=== PATIENT | male | born 1950 ===

== ENCOUNTER 2018-10-29 10:53 | Emergency (ER) | payer MEDICARE, BC ==
[2018-10-29] MEDS ORDERED: Ondansetron 4 MG/2 ML SDV IVPUSH ONE (11:43)
[2018-10-29] MEDS ORDERED: HYDROmorphone 1 MG/ML Syringe IVPUSH ONE (11:43)
[2018-10-29] MEDS ORDERED: Sodium Chloride 0.9% 10 ML Syringe FLUSH PRN ×3 (11:43→13:36)
--- NOTE | 2018-10-29 11:43 | EDM.PDOC ---
ED HPI GENERAL MEDICAL PROBLEM - General Chief Complaint: Back Pain or Injury Stated Complaint: BACK PAIN Time Seen by Provider: 10/29/18 11:20 Source of Information: Reports: Patient, Old Records History Limitations: Reports: No Limitations - History of Present Illness INITIAL COMMENTS - FREE TEXT/NARRATIVE: 68-year-old male presents for evaluation and treatment of back pain to the left upper side of his back. Patient reports he's been experiencing in this pain for several years. He has been seeing a chiropractor and has been told that his ribs are out of place. He had an adjustment about a week and half ago and states he felt better to help. He states since midnight has been a constant dull achy pain. Also reports ice to the area which seemed to help. Currently rates pain as a 7 out of 10. Was at an 8-9 out of 10. He did take a pain pill around 3 AM this morning. He also took some baby aspirin around 5 AM. States this is similar to pain he's had in the past, however, does seem more severe and is more constant. He states that he did start a lawnmower yesterday, this may have exacerbated the pain. He seen by the chiropractor today and was sent over to us due to concerns at this may be his gallbladder. Patient's blood pressure is elevated on upon arrival. He states that 3 weeks ago he stopped his blood pressure medications as he was on vacation he has not started them since. He is denying any headaches, vision changes, numbness or tingling in extremities, shortness of breath, nausea or vomiting. He reports that he has some indigestion epigastric and substernal area. Review patient's records show he has stress test in December 2017. This was read as normal. patient reports he drinks alcohol "a little bit ". He did not have any yesterday. Has a history of a bleeding ulcer. This was cauterized several years ago in [place]. He is on Prilosec and take this daily. Primary care provider is Tita Pineda in [place]. Treatments [employer] TECHNICIAN: Reports: Aspirin Left Upper Back Pain Score (Numeric/FACES): 8 - Related Data Allergies Allergy/AdvReac Type Severity Reaction Status Date / Time Penicillins Allergy Swollen Verified 10/29/18 11:01 Tongue Home Meds: Home Meds Calcium Carbonate [Tums] 2 tab PO ASDIRECTED PRN 01/16/14 [History] Omeprazole Magnesium [Prilosec Otc] 20 mg PO DAILY #30 01/17/14 [Rx] Lisinopril 20 mg PO DAILY 10/29/18 [History] amLODIPine [Norvasc] 10 mg PO DAILY 10/29/18 [History] hydroCHLOROthiazide [Hydrochlorothiazide] 25 mg PO DAILY 10/29/18 [History] Past Medical History Cardiovascular History: Reports: Hypertension Gastrointestinal History: Reports: GERD Musculoskeletal History: Reports: Back Pain, Chronic Social & Family History - Tobacco Use Smoking Status *Q: Never Smoker - Caffeine Use Caffeine Use: Reports: Coffee - Recreational Drug Use Recreational Drug Use: Yes ED ROS GENERAL - Review of Systems Review Of Systems: See Below Constitutional: Denies: Fever, Chills HEENT: Denies: Ear Pain, Throat Pain Respiratory: Denies: Shortness of Breath, Cough Cardiovascular: Reports: Chest Pain (Describes as indigestion) GI/Abdominal: Denies: Abdominal Pain, Nausea, Vomiting Musculoskeletal: Reports: Back Pain (Upper thoracic) Neurological: Denies: Headache ED EXAM, UPPER BACK/NECK PAIN - Physical Exam Exam: See Below Exam Limited By: No Limitations General Appearance: Alert, WD/WN, No Apparent Distress, Obese Eye Exam: Bilateral Eye: EOMI, Normal Inspection Ears Exam: Normal External Exam, Normal Canal, Hearing Grossly Normal, Normal TMs Nose Exam: Normal Inspection Throat/Mouth Exam: Normal Inspection, Normal Lips, Normal Oropharynx, Normal Voice, No Airway Compromise Neck Exam: Non-Tender Cardiovascular/Respiratory: Regular Rate, Rhythm, No M/R/G GI/Abdominal: Normal Bowel Sounds, Soft, Non-Tender, Hepatomegaly Neurologic: Alert, Normal Mood/Affect Psychiatric: Normal Affect, Normal Mood Skin Exam: Normal Color, Warm/Dry EKG INTERPRETATION EKG Date: 10/29/18 Rhythm: NSR EKG Interpretation Comments: ekg done at 11:13 shows a normal sinus rhythm of 67 bpm. PA-C. Rate increases from the 60s to the 110s after the PA-C. Q waves in 2, 3 and aVF. These are present on old EKG. Posterior ekg done at 1238 shows a normal sinus rhythm of 69 bpm. No acute changes. Repeat normal EKG done at 1311 shows a normal sinus rhythm of 70 bpm. Q waves I , II and aVF. He now has T-wave inversion in V5 and V6 not present on earlier ekg. ekgs reviewed by myself and Dr. Walden Course - Vital Signs Last Recorded V/S: Last Vital Signs Temp 98.7 F 10/29/18 10:58 Pulse 69 10/29/18 12:43 Resp 18 10/29/18 10:58 BP 171/103 H 10/29/18 12:43 Pulse Ox 95 10/29/18 13:23 - Orders/Labs/Meds Orders: Active Orders 24 hr Category Date Time Status Cardiac Monitoring [RC] . DIRECTED Care 10/29/18 11:44 Active EKG 12 Lead [EKG Documentation Completion] [RC] STAT Care 10/29/18 12:33 Active EKG 12 Lead [EKG Documentation Completion] [RC] STAT Care 10/29/18 12:43 Active EKG Documentation Completion [RC] ASDIRECTED Care 10/29/18 11:10 Active Peripheral IV Care [RC] . DIRECTED Care 10/29/18 11:43 Active Ang Abdomen Aorta w Bi Runoff [CT] Stat Exams 10/29/18 12:44 Ordered Heparin Sodium/D5W [Heparin 25,000 Units in D5W 500 ML] Med 10/29/18 12:30 Active 25,000 units in 500 ml IV TITRATE Nitroglycerin/D5W [Nitroglycerin 25 MG/D5W 250 ML] Med 10/29/18 12:45 Active 25 mg in 250 ml IV TITRATE Sodium Chloride 0.9% [Normal Saline] 100 ml Med 10/29/18 13:00 Active IV ASDIRECTED Sodium Chloride 0.9% [Saline Flush] Med 10/29/18 11:43 Active 10 ml FLUSH ASDIRECTED PRN Sodium Chloride 0.9% [Saline Flush] Med 10/29/18 12:53 Active 10 ml FLUSH ONETIME PRN Sodium Chloride 0.9% [Saline Flush] Med 10/29/18 13:36 Active 10 ml FLUSH ONETIME PRN Peripheral IV Insertion Adult [OM.PC] Routine Oth 10/29/18 11:43 Ordered EKG 12 Lead [EK] Stat Ther 10/29/18 11:10 Ordered Medication Orders Heparin Sodium/Dextrose (Heparin 25,000 Units In D5w 500 Ml) 25,000 units in 500 mls @ 20 mls/hr IV TITRATE MAC; Protocol Last Admin: 10/29/18 12:32 Dose: 1,000 units/hr, 20 mls/hr Nitroglycerin/Dextrose (Nitroglycerin 25 Mg/D5w 250 Ml) 25 mg in 250 mls @ 3 mls/hr IV TITRATE MAC; Protocol Last Admin: 10/29/18 13:33 Dose: 10 mcg/min, 6 mls/hr Titration: 10/29/18 13:33 Dose: 5 mcg/min, 3 mls/hr Admin: 10/29/18 12:57 Dose: 5 mcg/min, 3 mls/hr Sodium Chloride (Normal Saline) 100 mls @ 75 mls/hr IV ASDIRECTED MAC Last Admin: 10/29/18 13:38 Dose: 75 mls/hr Sodium Chloride (Saline Flush) 10 ml FLUSH ASDIRECTED PRN PRN Reason: Keep Vein Open Last Admin: 10/29/18 11:50 Dose: 10 ml Sodium Chloride (Saline Flush) 10 ml FLUSH ONETIME PRN PRN Reason: IV FLUSH Sodium Chloride (Saline Flush) 10 ml FLUSH ONETIME PRN PRN Reason: IV FLUSH Labs: Laboratory Tests 10/29/18 10/29/18 10/29/18 Range/Units 11:25 11:25 11:25 WBC 10.29 H (4.23-9.07) K/mm3 RBC 6.09 H (4.63-6.08) M/mm3 Hgb 17.5 (13.7-17.5) gm/L Hct 51.9 H (40.1-51.0) % MCV 85.2 (79.0-92.2) fl MCH 28.7 (25.7-32.2) pg MCHC 33.7 (32.2-35.5) g/dl RDW Std Deviation 49.2 H (35.1-43.9) fL Plt Count 451 H (163-337) K/mm3 MPV 9.4 (9.4-12.3) fl Neutrophils % (Manual) 82 H (40-60) % Band Neutrophils % 0 (0-10) % Lymphocytes % (Manual) 14 L (20-40) % Atypical Lymphs % 0 % Immat Monocytes % (Man) 0 Monocytes % (Manual) 1 L (2-10) % Eosinophils % (Manual) 1 (0.8-7.0) % Basophils % (Manual) 2 H (0.2-1.2) Metamyelocytes % 0 Myelocytes % 0 Promyelocytes % 0 Blast Cells % 0 Plasma Cell % (Manual) 0 Nucleated RBCs 0.0 % Platelet Estimate Adequate RBC Morph Comment Normal PT 10.1 (9.5-12.1) SECONDS INR 0.93 APTT 26 (24-31) SECONDS Sodium 136 (136-145) mEq/L Potassium 4.0 (3.5-5.1) mEq/L Chloride 98 (98-107) mEq/L Carbon Dioxide 25 (21-32) mEq/L Anion Gap 17.0 H (5-15) BUN 14 (7-18) mg/dL Creatinine 0.8 (0.7-1.3) mg/dL Est Cr Clr Drug Dosing 94.31 mL/min Estimated GFR (MDRD) > 60 (>60) mL/min BUN/Creatinine Ratio 17.5 (14-18) Glucose 117 H (80-115) mg/dL Calcium 8.5 (8.5-10.1) mg/dL Total Bilirubin 0.5 (0.2-1.0) mg/dL AST 84 H (15-37) U/L ALT 49 (16-63) U/L Alkaline Phosphatase 41 L (46-116) U/L Troponin I 5.984 H* (0.00-0.056) ng/mL Total Protein 8.1 (6.4-8.2) g/dl Albumin 3.8 (3.4-5.0) g/dl Globulin 4.3 gm/dL Albumin/Globulin Ratio 0.9 L (1-2) Lipase 86 (73-393) U/L Meds: Medications Generic Name Dose Route Start Last Admin Trade Name Freq PRN Reason Stop Dose Admin Heparin Sodium/Dextrose 25,000 units in 500 mls @ 20 mls/hr 10/29/18 12:30 12:32 Heparin 25,000 Units In D5w 500 Ml IV 1,000 units/hr TITRATE MAC 20 mls/hr Administration Protocol 1,000 UNITS/HR Nitroglycerin/Dextrose 25 mg in 250 mls @ 3 mls/hr 10/29/18 12:45 10/29/18 13 :58 Nitroglycerin 25 Mg/D5w 250 Ml IV 15 mcg/min TITRATE MAC 9 mls/hr Administration Protocol 5 MCG/MIN Sodium Chloride 100 mls @ 75 mls/hr 10/29/18 13:00 10/29/18 13:38 Normal Saline IV 75 mls/hr ASDIRECTED MAC Administration Sodium Chloride 10 ml 10/29/18 11:43 10/29/18 11:50 Saline Flush FLUSH 10 ml ASDIRECTED PRN Administration Keep Vein Open Sodium Chloride 10 ml 10/29/18 12:53 Saline Flush FLUSH ONETIME PRN IV FLUSH Sodium Chloride 10 ml 10/29/18 13:36 Saline Flush FLUSH ONETIME PRN IV FLUSH Discontinued Medications Generic Name Dose Route Start Last Admin Trade Name Freq PRN Reason Stop Dose Admin Aspirin 324 mg 10/29/18 11:44 10/29/18 11:48 Aspirin PO 10/29/18 11:45 324 mg ONETIME ONE Administration Heparin Sodium (Porcine) 4,000 units 10/29/18 12:19 10/29/18 12:30 Heparin Sodium IVPUSH 10/29/18 12:20 4,000 units ONETIME ONE Administration Hydromorphone HCl 1 mg 10/29/18 11:43 10/29/18 11:49 Dilaudid IVPUSH 10/29/18 11:44 1 mg ONETIME ONE Administration Hydromorphone HCl 0.5 mg 10/29/18 12:32 10/29/18 12:39 Dilaudid IVPUSH 10/29/18 12:33 0.5 mg ONETIME ONE Administration Iopamidol 100 ml 10/29/18 12:53 10/29/18 13:39 Isovue-370 (76%) IV 10/29/18 12:54 100 ml ONETIME ONE Administration Metoprolol Tartrate 5 mg 10/29/18 12:10 10/29/18 12:16 Lopressor IVPUSH 10/29/18 12:11 5 mg ONETIME ONE Administration Metoprolol Tartrate 5 mg 10/29/18 12:22 10/29/18 12:31 Lopressor IVPUSH 10/29/18 12:23 5 mg ONETIME ONE Administration Metoprolol Tartrate 5 mg 10/29/18 12:22 10/29/18 12:43 Lopressor IVPUSH 10/29/18 12:23 5 mg ONETIME ONE Administration Ondansetron HCl 4 mg 10/29/18 11:43 10/29/18 11:49 Zofran IVPUSH 10/29/18 11:44 4 mg ONETIME ONE Administration Simvastatin 80 mg 10/29/18 12:54 10/29/18 13:30 Zocor PO 10/29/18 12:55 80 mg ONETIME ONE Administration - Radiology Interpretation Free Text/Narrative:: Chest: Portable view of the chest was obtained. Comparison: Prior chest x-ray of 12/14/17. Heart is slightly enlarged. Upper mediastinum is normal. Lungs are clear but mildly hyperinflated. Bony structures are grossly intact. Impression: 1. Heart mildly enlarged. 2. Questionable emphysematous change. 3. Nothing acute is seen. CT abdomen and pelvis with lower extremities Technique: Multiple axial sections were obtained through the from above the aortic arch inferiorly through the abdomen and pelvis and pelvis and lower extremities. Intravenous contrast was utilized as a arterial angiogram with runoff. Comparison: No prior abdominal imaging or vascular imaging. Findings: Thoracic aorta shows no aneurysm or dissection. Visualized pulmonary arteries show no filling defects to indicate pulmonary embolism. Visualized lungs are clear. Small hiatal hernia is noted. Abdominal aorta shows no focal stenosis or aneurysm. Both renal arteries appeared to be patent. Celiac axis is patent. Superior mesenteric artery is patent. Inferior mesenteric artery is patent. Common iliac arteries as well as external and internal iliac arteries are patent. Common femoral arteries are patent on both sides as well as profunda arteries. Both superficial femoral arteries are patent. Popliteal arteries are both patent. Small fluid collections are seen posterior to both knees compatible with small popliteal cysts. Trifurcation vessels are seen on both sides with 2 opacified vessels into the ankle. Other findings: Liver contains no focal abnormality. Gallbladder contains no calcified gallstones. Normal spleen is not seen with soft tissue nodules being seen within the left upper abdomen compatible with residual splenic tissue. Adrenal glands show no nodule. Pancreas is within normal limits. Kidneys show symmetric contrast enhancement. Both kidneys shows several small cysts. No retroperitoneal adenopathy or mesenteric abnormalities are seen. No pelvic mass or adenopathy is seen. No free fluid or inflammatory change is seen within the abdomen or pelvis. Bone window setting show scoliosis and scattered degenerative change within the spine. Impression: 1. Normal aortogram with normal three-vessel runoff. No aneurysm or occlusion is seen. No dissection is seen. 2. Visualized thoracic aorta is unremarkable. No findings of pulmonary embolism. 3. Other incidental findings. CT chest Technique: Multiple axial sections through the chest were obtained. Intravenous contrast was utilized. Findings: Normal thoracic aorta is seen with no aneurysm or dissection. Pulmonary arteries show no filling defects to indicate pulmonary embolism. Mediastinum and hilar regions show no adenopathy or mass. No pericardial fluid is seen. Small hiatal hernia is noted. Lungs are clear with no acute parenchymal change. Bone window settings show mild degenerative change within the spine. Impression: 1. Aorta shows no aneurysm or dissection. No pulmonary embolism is seen. 2. Nothing acute is seen on CT study chest. - Re-Assessments/Exams Free Text/Narrative Re-Assessment/Exam: 10/29/18 13:[address] Moctezuma, hospitalist at [facility] in [place]. Recommended a CTA to evaluate for aortic dissection, repeat EKG and starting a nitro drip. Also recommended 80 mg of statin. Agrees to accept the patient would like an update with these results when they're done. Patient sent for CTA at this time. 10/29/18 13:43 Patient is pain-free at this time. Nitrogen has been started he's been on this for approximately 10-15 minutes. Blood pressure still elevated elevated. blood pressure 170/97. nitro increased to 10 g. Heart rate is 74. Denies any pain at this time. Repeat EKG shows T-wave inversion in V5 and V6. 10/29/18 13:57 b/p 179/119 increase nitro drip to 15mcg. 10/29/18 14:05 BP at this time 170/120. Updated Dr. Munson. Recommended continuing to increase nitroglycerin every 20 minutes by 5 with a goal of systolic 150s. He will be rejected a, states he developed worsening hypertension or chest pain en route. Departure - Departure Time of Disposition: 14:05 Disposition: DC/Tfer to Acute Hospital 02 Condition: Serious Clinical Impression: NSTEMI (non-ST elevated myocardial infarction) - Discharge Information *PRESCRIPTION DRUG MONITORING PROGRAM REVIEWED*: No *COPY OF PRESCRIPTION DRUG MONITORING REPORT IN PATIENT SUE: No Referrals: Tita Pineda NP [Primary Care Provider] - Forms: ED Department Discharge Additional Instructions: Patient to go by ground ambulance to [facility] in [place], Dr. Mohr accepting. Patient will be a direct admit to Dr. Mohr unless if he develops chest pain or worsen hypertension en route. - My Orders Last 24 Hours: My Active Orders 10/29/18 11:10 EKG Documentation Completion [RC] ASDIRECTED EKG 12 Lead [EK] Stat 10/29/18 11:43 Peripheral IV Care [RC] . DIRECTED Sodium Chloride 0.9% [Saline Flush] 10 ml FLUSH ASDIRECTED PRN Peripheral IV Insertion Adult [OM.PC] Routine 10/29/18 11:44 Cardiac Monitoring [RC] . DIRECTED 10/29/18 12:30 Heparin Sodium/D5W [Heparin 25,000 Units in D5W 500 ML] 25,000 units in 500 ml IV TITRATE 10/29/18 12:33 EKG 12 Lead [EKG Documentation Completion] [RC] STAT 10/29/18 12:43 EKG 12 Lead [EKG Documentation Completion] [RC] STAT 10/29/18 12:44 Ang Abdomen Aorta w Bi Runoff [CT] Stat 10/29/18 12:45 Nitroglycerin/D5W [Nitroglycerin 25 MG/D5W 250 ML] 25 mg in 250 ml IV TITRATE 10/29/18 12:53 Sodium Chloride 0.9% [Saline Flush] 10 ml FLUSH ONETIME PRN 10/29/18 13:00 Sodium Chloride 0.9% [Normal Saline] 100 ml IV ASDIRECTED 10/29/18 13:36 Sodium Chloride 0.9% [Saline Flush] 10 ml FLUSH ONETIME PRN - Assessment/Plan Last 24 Hours: My Active Orders 10/29/18 11:10 EKG Documentation Completion [RC] ASDIRECTED EKG 12 Lead [EK] Stat 10/29/18 11:43 Peripheral IV Care [RC] . DIRECTED Sodium Chloride 0.9% [Saline Flush] 10 ml FLUSH ASDIRECTED PRN Peripheral IV Insertion Adult [OM.PC] Routine 10/29/18 11:44 Cardiac Monitoring [RC] . DIRECTED 10/29/18 12:30 Heparin Sodium/D5W [Heparin 25,000 Units in D5W 500 ML] 25,000 units in 500 ml IV TITRATE 10/29/18 12:33 EKG 12 Lead [EKG Documentation Completion] [RC] STAT 10/29/18 12:43 EKG 12 Lead [EKG Documentation Completion] [RC] STAT 10/29/18 12:44 Ang Abdomen Aorta w Bi Runoff [CT] Stat 10/29/18 12:45 Nitroglycerin/D5W [Nitroglycerin 25 MG/D5W 250 ML] 25 mg in 250 ml IV TITRATE 10/29/18 12:53 Sodium Chloride 0.9% [Saline Flush] 10 ml FLUSH ONETIME PRN 10/29/18 13:00 Sodium Chloride 0.9% [Normal Saline] 100 ml IV ASDIRECTED 10/29/18 13:36 Sodium Chloride 0.9% [Saline Flush] 10 ml FLUSH ONETIME PRN
[2018-10-29] MEDS ORDERED: Aspirin 81 MG Tab.Chew PO ONE (11:44)
[2018-10-29] MEDS ORDERED: Metoprolol Tartrate 5 MG/5 ML SDV IVPUSH ONE ×3 (12:10→12:22)
[2018-10-29] MEDS ORDERED: Heparin Sodium 5,000 Units/ML Vial IVPUSH ONE (12:19)
[2018-10-29] MEDS ORDERED: Heparin Sodium/D5W 25,000 UNITS/500 ML BAG IV SCH (12:30)
[2018-10-29] MEDS ORDERED: HYDROmorphone 0.5 MG/0.5 ML Syringe IVPUSH ONE (12:32)
[2018-10-29] MEDS ORDERED: Iopamidol 755 Mg/ML 200 ML Bottle IV ONE ×2 (12:53→13:36)
[2018-10-29] MEDS ORDERED: Simvastatin 20 MG Tab PO ONE (12:54)
[2018-10-29] MEDS: Nitroglycerin/D5W 25 MG/250 ML BOTTLE IV SCH ×4 (12:57→14:22)
[2018-10-29] MEDS ORDERED: Sodium Chloride 0.9% 100 ML IV SCH ×2 (13:00→13:45)
--- NOTE | 2018-10-29 13:38 | CR ---
Chest: Portable view of the chest was obtained. Comparison: Prior chest x-ray of 12/14/17. Heart is slightly enlarged. Upper mediastinum is normal. Lungs are clear but mildly hyperinflated. Bony structures are grossly intact. Impression: 1. Heart mildly enlarged. 2. Questionable emphysematous change. 3. Nothing acute is seen. Diagnostic code #3
--- NOTE | 2018-10-29 13:57 | CT ---
CT chest Technique: Multiple axial sections through the chest were obtained. Intravenous contrast was utilized. Findings: Normal thoracic aorta is seen with no aneurysm or dissection. Pulmonary arteries show no filling defects to indicate pulmonary embolism. Mediastinum and hilar regions show no adenopathy or mass. No pericardial fluid is seen. Small hiatal hernia is noted. Lungs are clear with no acute parenchymal change. Bone window settings show mild degenerative change within the spine. Impression: 1. Aorta shows no aneurysm or dissection. No pulmonary embolism is seen. 2. Nothing acute is seen on CT study chest. Diagnostic code #2
--- NOTE | 2018-10-29 14:08 | CT ---
CT abdomen and pelvis with lower extremities Technique: Multiple axial sections were obtained from above the aortic arch inferiorly through the abdomen and pelvis and pelvis and lower extremities. Intravenous contrast was utilized as a arterial angiogram with runoff. Comparison: No prior abdominal imaging or vascular imaging. Findings: Thoracic aorta shows no aneurysm or dissection. Visualized pulmonary arteries show no filling defects to indicate pulmonary embolism. Visualized lungs are clear. Small hiatal hernia is noted. Abdominal aorta shows no focal stenosis or aneurysm. Both renal arteries appeared to be patent. Celiac axis is patent. Superior mesenteric artery is patent. Inferior mesenteric artery is patent. Common iliac arteries as well as external and internal iliac arteries are patent. Common femoral arteries are patent on both sides as well as profunda arteries. Both superficial femoral arteries are patent. Popliteal arteries are both patent. Small fluid collections are seen posterior to both knees compatible with small popliteal cysts. Trifurcation vessels are seen on both sides with 2 opacified vessels into the ankle. Other findings: Liver contains no focal abnormality. Gallbladder contains no calcified gallstones. Normal spleen is not seen with soft tissue nodules being seen within the left upper abdomen compatible with residual splenic tissue. Adrenal glands show no nodule. Pancreas is within normal limits. Kidneys show symmetric contrast enhancement. Both kidneys shows several small cysts. No retroperitoneal adenopathy or mesenteric abnormalities are seen. No pelvic mass or adenopathy is seen. No free fluid or inflammatory change is seen within the abdomen or pelvis. Bone window setting show scoliosis and scattered degenerative change within the spine. Impression: 1. Normal aortogram with normal three-vessel runoff. No aneurysm or occlusion is seen. No dissection is seen. 2. Visualized thoracic aorta is unremarkable. No findings of pulmonary embolism. 3. Other incidental findings. Diagnostic code #2
== END 2018-10-29 14:38 ==
LOC: JD.ED 10:53
DX: I21.4 Non-ST elevation (NSTEMI) myocardial infarction (principal); I10 Essential (primary) hypertension; K21.9 Gastro-esophageal reflux disease without esophagitis; Z88.0 Allergy status to penicillin; Z79.899 Other long term (current) drug therapy
CPT/HCPCS: 36415; 71045; 71275; 75635; 80053; 83690; 84484; 85007; 85027; 85610; 85730; 93005; 94762; 96365; 96366; 96368; 96375; 96376; 99285; A9270; J1170; J1644; J2405; J3490; J7030; Q9967; 93010; 99284